=== PATIENT | male | born 1970 | race Caucasian/White ===

== ENCOUNTER 2018-04-09 17:51 | Emergency (ER) | payer OTHER ==
[2018-04-09] MEDS ORDERED: Lidocaine 1% with EPINEPHrine 1:100,000 50 ML MDV INJECT STA (18:27)
[2018-04-09] MEDS ORDERED: Diphtheria,Pertussis(Acell),Tetanus Vaccine 0.5 ML SDV IM ONE (18:28)
--- NOTE | 2018-04-09 18:31 | EDM.PDOC ---
ED HPI GENERAL MEDICAL PROBLEM - General Chief Complaint: Laceration Stated Complaint: LACERATION ON BOTTOM OF RT FOOT Time Seen by Provider: 04/09/18 18:23 Source of Information: Reports: Patient, RN Notes Reviewed History Limitations: Reports: No Limitations - History of Present Illness INITIAL COMMENTS - FREE TEXT/NARRATIVE: Here with his Chief complaint Laceration to right foot. History of present illness 47-year-old male, they are visiting from [place] Stepped into a paddle boat then cut his foot on the metal part of the boat No other injuries Considerable bleeding Tetanus status possibly 10 years ago - Related Data Allergies Allergy/AdvReac Type Severity Reaction Status Date / Time No Known Allergies Allergy Verified 04/09/18 19:00 Home Meds: Home Meds Lisinopril 1 tab PO DAILY 04/09/18 [History] Sertraline HCl 25 mg PO DAILY 04/09/18 [History] ED ROS GENERAL - Review of Systems Review Of Systems: ROS reveals no pertinent complaints other than HPI. Musculoskeletal: Reports: No Symptoms Skin: Reports: Wound (Laceration along the bottom of the foot) Neurological: Reports: No Symptoms ED EXAM, SKIN/RASH Exam: See Below Exam Limited By: No Limitations General Appearance: Alert, Mild Distress, Other (Appears well, vital signs normal, no difficulty speaking or breathing, injury confined to the right foot) Head: Atraumatic, Normocephalic Neck: Normal Inspection Respiratory/Chest: No Respiratory Distress, No Accessory Muscle Use Cardiovascular: Normal Peripheral Pulses, Regular Rate, Rhythm Extremities: Normal Range of Motion, Normal Capillary Refill, Other (5 cm laceration mid sole of the right foot, keeping her) Neurological: Alert, Oriented, No Motor/Sensory Deficits Psychiatric: Normal Mood Skin: Warm, Normal Color, No Rash ED SKIN PROCEDURES - Laceration/Wound Repair Right Foot Lac/Wound length In cm: 7.5 Appearance: Subcutaneous (Midsole), Clean Distal NVT: Neuro & Vascular Intact, No Tendon Injury Anesthetic Type: Local Local Anesthesia - Lidocaine (Xylocaine): 1% with EPI Local Anesthetic Volume: Other (10 mL) Skin Prep: Chlorhexidine (Hibiciens) Exploration/Debridement/Repair: Wound Explored, No Foreign Material Found Closed with: Sutures Suture Size: 3-0 # of Sutures: 7 Suture Type: Nylon, Interrupted, Simple Sterile Dressing Applied: Nurse Tetanus Status Addressed: Yes Complications: No Course - Vital Signs Last Recorded V/S: Last Vital Signs Temp 36.8 C 04/09/18 18:32 Pulse 60 04/09/18 18:32 Resp 14 04/09/18 18:32 BP 138/81 04/09/18 18:32 Pulse Ox 98 04/09/18 18:32 - Orders/Labs/Meds Orders: Active Orders 24 hr Category Date Time Status Vaccines to be Administered [RC] PER UNIT ROUTINE Care 04/09/18 18:28 Active Meds: Medications Discontinued Medications Generic Name Dose Route Start Last Admin Trade Name Denise PRN Reason Stop Dose Admin Diphtheria/Tetanus/Acell Pertussis 0.5 ml 04/09/18 18:28 04/09/18 19:02 Adacel IM 04/09/18 18:29 0.5 ml .ONCE ONE Administration Lidocaine/Epinephrine 10 ml 04/09/18 18:27 04/09/18 19:06 Xylocaine 1% With Epinephrine 1:100,000 INJECT 04/09/18 18:28 10 ml ONETIME STA Administration - Re-Assessments/Exams Free Text/Narrative Re-Assessment/Exam: 04/09/18 18:31 47-year-old male with laceration to his right sole Unfortunately this is large enough that it needs to be repaired. Tetanus diphtheria activated pertussis booster Departure - Departure Time of Disposition: 19:26 Disposition: Home, Self-Care 01 Condition: Good Clinical Impression: Laceration of right foot Qualifiers: Encounter type: initial encounter Qualified Code(s): S91.311A - Laceration without foreign body, right foot, initial encounter - Discharge Information Instructions: Sutured Wound Care Referrals: PCP,None [Primary Care Provider] - Forms: ED Department Discharge Additional Instructions: There are 7 stitches that need to be removed in 12 days unless signs of infection occur. If there is increased pain and swelling, redness, red streaks going up the foot , fever, or cloudy discharge from the wound, have it rechecked promptly The stitches may need to come out early if there are signs of infection. For fast is healing keep the wound covered Showers are allowed It is recommended not to go swimming or use a pool for at least a Week, preferably until the stitches are removed You received a tetanus diphtheria and pertussis booster today - My Orders Last 24 Hours: My Active Orders 04/09/18 18:28 Vaccines to be Administered [RC] PER UNIT ROUTINE - Assessment/Plan Last 24 Hours: My Active Orders 04/09/18 18:28 Vaccines to be Administered [RC] PER UNIT ROUTINE
== END 2018-04-09 19:46 | disposition home or self-care (01) ==
LOC: JP.ED 17:51
DX: S91.311A Laceration without foreign body, right foot, initial encounter (principal); Z23 Encounter for immunization; W26.8XXA Contact with other sharp object(s), not elsewhere classified, initial encounter; Y92.814 Boat as the place of occurrence of the external cause; Z79.899 Other long term (current) drug therapy
CPT/HCPCS: 12002; 90471; 90715; 99283-25